=== PATIENT | female | born 1975 | race Caucasian/White ===

== ENCOUNTER 2018-12-09 10:50 | Outpatient (REF) | payer BC, SELFPAY ==
--- NOTE | 2018-12-09 10:30 | PAPFT_PTH ---
PATIENT: Inga Hylton LOC: [facility] U#:[id number] AGE/SX: 43/F ROOM: RE12/09/[address]: HYACINTH Cornell : 1975 BED: DIS: 12/09/2018 SPEC #: [id number] RECD: 12/09/18 13:19 STATUS: MERCEDES REQ #: [id number] JUN: 12/09/18 10:[address]: Luba Sharma DEPT: [facility] Cytology RECD BY: Darlyn Nicole ENTERED: 12/09/18 13:19 SP TYPE: PAPFT OTHR DR: Loni Briones Tissues: 1 - CX/ENDOCX FOR PAP SMEARS Procedures: PAP THIN PREP/UVM Screening HPV DNA PROBE Comments: [id number]
== END 2018-12-09 11:10 ==
LOC: LBN 10:50
PROVIDERS: PCP Nurse Practitioner Family; Visit Provider Nurse Practitioner Family
DX: Z12.4 Encounter for screening for malignant neoplasm of cervix (principal); Z11.51 Encounter for screening for human papillomavirus (HPV)
CPT/HCPCS: 88142; 87624

== ENCOUNTER 2018-12-16 00:26 | Outpatient (CLI) | payer BC, SELFPAY ==
--- NOTE | 2018-12-16 11:00 | DI.MAMMO_ITS ---
SYMPTOMS/DIAGNOSIS: SCREENING, Z12.31, FAMILY HISTORY OF BREAST CA IN GRANDMOTHER AND 2 AUNTS UNDER 50 MAMMOGRAM: Mammograms were interpreted according to the usual protocol including computer analysis with CAD system, tomosynthesis and C view imaging. The breasts are heterogeneously dense. No dominant mass or clumped microcalcification is identified in either breast. Current examination is compared with previous examinations including April 2017 and there has been no gross interval change in appearance in comparison with the previous studies. CONCLUSION: No specific evidence of malignancy at this time. Routine screening examinations are suggested at yearly intervals due to the family history of breast carcinoma. Category 1, breast density category C. MQSA ASSESSMENT OF FINDINGS: Negative. Category 1. Patient will receive a letter notifying them of these results. Bi-RADS category C. The breasts are heterogeneously dense, which may obscure small masses.
== END 2018-12-16 00:46 ==
PROVIDERS: PCP Nurse Practitioner Family; Visit Provider Nurse Practitioner Family
DX: Z12.31 Encounter for screening mammogram for malignant neoplasm of breast (principal); Z80.3 Family history of malignant neoplasm of breast
CPT/HCPCS: 77063; 77067

== ENCOUNTER → 2023-10-31 01:49 | Outpatient (CLI) | payer OTHER, SELFPAY ==
--- OUTSIDE RECORDS SUMMARY | 2023-09-27 00:48 | XMS_ITS | CCD ---
Author Name Unknown Address [address] [place] [address] [id number] Organization Unknown Address [address] [place], [place] [id number] Care Team Providers Care Circulating Process Inspector Name Role Phone LOUIS REICH MD Attending Physician [phone] Vital Signs Unknown or Not Available. Allergies Unknown or Not Available. Procedures Unknown or Not Available. History of Immunizations Unknown or Not Available. Problems Unknown or Not Available. Results CRISTIAN VALDEZID ANIKAX - Colle ct Date/Time: 06/20/2021 11:00 Test Name Code Test Result Test Units Test Ref Rang e SOURCE= Anterior nasal N/A Tier- TRAVEL N/A SARS COV2 RNA: 81062-5 NEGATIVE N/A REFERENCE RANGE: NEGAT Active Medications Unknown or Not Available. Medications Administered During Visit Unknown or Not Available. Encounters Encounter Diagnosis Diagnosis Code Start Date CONTACT WITH AND SUSPECTED EXPOSURE TO COVID-19 [id number] 06/20/2021 Social History Unknown or Not Available. Patient Decision Aids Unknown or Not Available. Discharge Instructions You were admitted to [facility] on 06/20/2021 13:03 with a principal diagnosis of Contact with and (suspected) exposure to COVID-19 You had the following tests done:CRISTIAN DU You were discharged from [facility] on 06/20/2021 13:04 Should you have any questions prior to discharge, please contact a member of your healthcare team. If you have left the hospital and have any questions, please contact your primary care physician. Chief Complaint and Reason For Visit Unknown or Not Available. Function Status Unknown or Not Available. Plan of Care Unknown or Not Available. Referral/Transition of Care Unknown or Not Available.
--- OUTSIDE RECORDS SUMMARY | 2023-09-27 00:48 | XMS_ITS | CCD ---
Author Name Unknown Address [address] [place] [address] [phone] Organization Unknown Address [address] [place], [place] [id number] Care Team Providers Care Psychiatric Aide Name Role Phone YASMEEN GONZALEZ Attending Physician [phone] YASMEEN GONZALEZ Er Physician 3 [phone] JAMAR Lockhart Registered Nurse [phone] TADEO Lockhart Registered Nurse [phone] Vital Signs Vital Sign Value Unit Date/Time Recent/Initial ? BMI (Body Mass Index) 29.53 kg/m^2 02/20/2023 23: 11 Initial VS Weight Measured 200 lbs 02/20/2023 23:11 Ini tial VS Height 69 in 02/20/2023 23:11 Initial VS BSA (Body Surface Area) 2.1 m^2 02/20/2023 2 3:11 Initial VS BP Systolic 145 mmHg 02/20/2023 23:11 Initial VS BP Diastolic 81 mmHg 02/20/2023 23:11 Initia l VS Respiratory Rate 12 bpm 02/20/2023 23:11 In itial VS Heart Rate 97 bpm 02/20/2023 23:11 Initial VS O2 % BldC Oximetry 98 % 02/20/2023 23:11 Initial VS Body Temperature 37.2 degrees 02/20/2023 23:11 In itial VS BP Systolic 104 mmHg 02/21/2023 01:37 Most Re cent VS BP Diastolic 60 mmHg 02/21/2023 01:37 Most R ecent VS Respiratory Rate 13 bpm 02/21/2023 01:[address] Recent VS Heart Rate 78 bpm 02/21/2023 01:37 Most Rec ent VS O2 % BldC Oximetry 97 % 02/21/2023 01:37 Most Recent VS Allergies Allergy Code Allergy Type Reaction Status No Known Drug Allergies 0 No known drug allergies Active Procedures Unknown or Not Available. History of Immunizations Unknown or Not Available. Problems Problem Code Start Date Resolved Date Status Hypothyroidism [id number] 02/20/2023 Resolved Results BASIC METABOLIC PANEL (BMP) - Collect Date/Time: 02/20/2023 23:05 Test Name Code Test Result Test Units Test Ref Rang e GLUCOSE 2345-7 105 mg/dL L=70 H=116 BUN 3094-0 19 mg/dL L=6 H=25 CREATININE 2160-0 0.94 mg/dL L=0.51 H=0.95 SODIUM SERUM 2951-2 142 mmol/L L=136 H=145 POTASSIUM SERUM 2823-3 3.4 mmol/L L=3.4 H=5 .2 CHLORIDE SERUM 2075-0 103 mmol/L L=96 H=110 CARBON DIOXIDE (CO2) 2028-9 31 mmol/L L=22 H=34 ANION GAP 80364-9 8.0 mmol/L CALCIUM SERUM 02874-0 9.0 mg/dL L=8.2 H=10. 2 AGE 47 years eGFR (non-Afr.Amer.) 32191-7 64 mL/min eGFR (Afr-Bermudian) 02131-1 78 mL/min TROPONIN HIGH SENSITIVITY* - Collect Date/Time: 02/21/2023 00:35 Test Name Code Test Result Test Units Test Ref Rang e TROPONIN HS 5.9 pg/mL L=0.0 H=60.4 Specimen seq. 3 HOUR N/A TROPONIN HIGH SENSITIVITY* - Collect Date/Time: 02/20/2023 23:05 Test Name Code Test Result Test Units Test Ref Rang e TROPONIN HS 7.2 pg/mL L=0.0 H=60.4 Specimen seq. RANDOM N/A CBC W/ DIFFERENTIAL* - Colle ct Date/Time: 02/20/2023 23:05 Test Name Code Test Result Test Units Test Ref Rang e WBC 6690-2 12.21 th/cmm L=5.00 H=10.00 NEUT % 63.3 % L=40.0 H=80.0 LYMPH % 28.4 % L=10.0 H=50.0 MONO % 83624-9 6.5 % L=2.0 H=12.0 EOS % 1.0 % L=0.0 H=8.0 BASO % 0.5 % L=0.0 H=3.0 IG % 2514-8 0.3 % L=0.0 H=1.1 NRBC % 06718-6 0.0 % L=0.0 H=0.0 NEUT abs count 751-8 7.7 th/cmm L=1.6 H=8. 4 LYMPH abs count 731-0 3.5 th/cmm L=1.5 H=4 .0 MONO abs count 742-7 0.8 th/cmm L=0.2 H=1. 0 EOS abs count 711-2 0.1 th/cmm L=0.0 H=0.5 BASO abs count 704-7 0.1 th/cmm L=0.0 H=0. 2 IG abs count 92371-3 0.0 th/cmm L=0.0 H=0.1 NRBC abs count 05553-3 0.0 mil/cmm L=0.0 H=0. 0 RBC 789-8 4.36 mil/cmm L=3.90 H=5.40 HEMOGLOBIN 718-7 13.5 gm/dL L=12.0 H=16.0 HEMATOCRIT 4544-3 41 % L=37 H=47 MCV 787-2 94 fL L=82 H=92 MCH 785-6 31.0 pg L=27.0 H=31.0 MCHC 786-4 33.0 % L=32.0 H=36.0 RDW-SD 788-0 45.1 fL L=39.0 H=49.0 PLATELET COUNT 777-3 306 th/cmm L=150 H=45 0 Active Medications Medications Administered During Visit Medication Dose Units Frequency Route Date/Time of Last Dose ASPIRIN TABLET CHEWABLE: 81MG 324 MG X1 CHEW 02/20/2023 23:48 ER-ONDANSETRON ODT 4 PACK: 4MG 4 MG PRN Q8H PO 02/21/2023 01:50 Encounters Encounter Diagnosis Diagnosis Code Start Date Chest pain [id number] 02/20/2023 Social History Unknown or Not Available. Patient Decision Aids Unknown or Not Available. Discharge Instructions You were admitted to [facility] on 02/20/2023 23:00 with a principal diagnosis of Other chest pain You had the following tests done:TROPONIN HIGH SENSITIVITY*BASIC METABOLIC PANEL (BMP)CBC W/ DIFFERENTIAL*TROPONIN HIGH SENSITIVITY* You were discharged from [facility] on 02/21/2023 01:52 Should you have any questions prior to discharge, please contact a member of your healthcare team. If you have left the hospital and have any questions, please contact your primary care physician. Chief Complaint and Reason For Visit Chief Complaint Date of Onset CHEST PAIN Function Status Unknown or Not Available. Plan of Care Unknown or Not Available. Referral/Transition of Care Unknown or Not Available.
--- OUTSIDE RECORDS SUMMARY | 2023-09-27 00:48 | XMS_ITS | CCD ---
Author Name Unknown Address [address] [place] [address] [phone] Organization Unknown Address [address] [place], [place] [phone] Care Team Providers Care Head Of Sales And Marketing Name Role Phone FABRICIO WONG Attending Physician [phone] Vital Signs Unknown or Not Available. Allergies Allergy Code Allergy Type Reaction Status No Known Drug Allergies 0 No known drug allergies Active Procedures Unknown or Not Available. History of Immunizations Unknown or Not Available. Problems Unknown or Not Available. Results FREE THYROXINE FOR THYROID C ASCADE* - Collect Date/Time: 09/11/2023 16:47 Test Name Code Test Result Test Units Test Ref Rang e FREE THYROXINE. 1.6 ng/dL L=0.7 H=1 .4 GLUCOSE BLOOD QUANT* - Colle ct Date/Time: 09/11/2023 16:47 Test Name Code Test Result Test Units Test Ref Rang e GLUCOSE 2345-7 81 mg/dL L=70 H=116 LIPID PANEL* - Collect Date/ Time: 09/11/2023 16:47 Test Name Code Test Result Test Units Test Ref Rang e CHOLESTEROL 2093-3 207 mg/dL L=0 H=200 TRIGLYCERIDES 2571-8 143 mg/dL L=45 H=191 HDL 2085-9 60 mg/dL L=34 H=88 non-HDL-C 47231-7 147 mg/dL L=0 H=160 LDL (CALC) 49261-0 118 mg/dL L=0 H=130 % HDL 29.0 % Chol/HDL Ratio 9830-1 3.5 L=0.0 H=4. 4 CHD Relative Risk 0.8 x Avg L=0.0 H =1.0 LDL/HDL Ratio 52651-0 2.0 L=0.0 H=3.2 CHD Relative Risk. 0.6 x Avg L=0.0 H=1.0 FASTING STATUS: NON FASTING N/A THYROID TESTING CASCADE* - C ollect Date/Time: 09/11/2023 16:47 Test Name Code Test Result Test Units Test Ref Rang e TSH. 3014-8 <0.007 uIU/mL L=0.360 H=3.74 0 Active Medications Unknown or Not Available. Medications Administered During Visit Unknown or Not Available. Encounters Unknown or Not Available. Social History Unknown or Not Available. Patient Decision Aids Unknown or Not Available. Discharge Instructions You were admitted to [facility] on 09/11/2023 12:27 You had the following tests done:FREE THYROXINE FOR THYROID CASCADE*GLUCOSE BLOOD QUANT*LIPID PANEL*THYROID TESTING CASCADE* You were discharged from [facility] on 09/11/2023 12:27 Should you have any questions prior to [...]
--- OUTSIDE RECORDS SUMMARY | 2023-09-27 00:48 | XMS_ITS | CCD ---
Author Name Unknown Address [address] [place] [address] [id number] Organization Unknown Address [address] [place] [address] [phone] Care Team Providers Care Production Tool Engineer Name Role Phone KARELY QUINN Chanda Attending Physician [phone] Vital Signs Unknown or Not Available. Allergies Unknown or Not Available. Procedures Unknown or Not Available. History of Immunizations Unknown or Not Available. Problems Unknown or Not Available. Results HEP B SURF ANTIBODY* - Colle ct Date/Time: 05/16/2022 10:07 Test Name Code Test Result Test Units Test Ref Rang e HBs Antibody, Quant >1000.0 mIU/mL See N ote Hep B Surface Ab Positive N/A See Note MUMPS IGG ANTIBODY SCREEN* - Collect Date/Time: 05/16/2022 10:07 Test Name Code Test Result Test Units Test Ref Rang e Mumps Antibody IgG Positive N/A See No te RUBELLA IGG ANTIBODY - Colle ct Date/Time: 05/16/2022 10:07 Test Name Code Test Result Test Units Test Ref Rang e Rubella IgG Ab Positive N/A See Note RUBEOLA IGG ANTIBODY* - Debra ect Date/Time: 05/16/2022 10:07 Test Name Code Test Result Test Units Test Ref Rang e Measles IgG Antibody Positive N/A See Note VARICELLA IGG ANTIBODY* - Co llect Date/Time: 05/16/2022 10:07 Test Name Code Test Result Test Units Test Ref Rang e Varicella IgG Antibody Positive N/A Se e Note Active Medications Unknown or Not Available. Medications Administered During Visit Unknown or Not Available. Encounters Encounter Diagnosis Diagnosis Code Start Date History and physical examination, pre-employment [id number] 05/16/2022 Social History Smoking Status Code Start Date End Date Unknown if ever smoked [id number] Patient Decision Aids Unknown or Not Available. Discharge Instructions You were admitted to [facility] on 05/16/2022 16:44 with a principal diagnosis of Encounter for pre-employment examination You had the following tests done:HEP B SURF ANTIBODY*MUMPS IGG ANTIBODY SCREEN*RUBELLA IGG ANTIBODYRUBEOLA IGG ANTIBODY*VARICELLA IGG ANTIBODY* You were discharged from [facility] on 05/16/2022 16:44 Should you have any questions prior to [...]
--- OUTSIDE RECORDS SUMMARY | 2023-09-27 00:49 | XMS_ITS | CCD ---
Author Name Unknown Address [address] [place] [address] [phone] Organization Unknown Address [address] [place] [address] [phone] Care Team Providers Care Special Procedures Nurse Name Role Phone LOUIS REICH Attending Physician [phone] Vital Signs Unknown or Not Available. Allergies Unknown or Not Available. Procedures Unknown or Not Available. History of Immunizations Unknown or Not Available. Problems Unknown or Not Available. Results CRISTIAN COVID RHEONIX* - Debra ect Date/Time: 07/29/2021 11:41 Test Name Code Test Result Test Units Test Ref Rang e SOURCE= Anterior nasal N/A Tier- SYMPTOMS N/A SARS COV2 RNA: 50399-7 NEGATIVE N/A REFERENCE RANGE: NEGAT Active Medications Unknown or Not Available. Medications Administered During Visit Unknown or Not Available. Encounters Encounter Diagnosis Diagnosis Code Start Date Exposure to SARS-CoV-2 [id number] Social History Smoking Status Code Start Date End Date Unknown if ever smoked [id number] Patient Decision Aids Unknown or Not Available. Discharge Instructions You were admitted to [facility] on 07/29/2021 22:26 with a principal diagnosis of Contact with and (suspected) exposure to COVID-19 You had the following tests done:CRISTIAN COVID RHEONIX* You were discharged from [facility] on 07/29/2021 22:26 Should you have any questions prior to [...]
--- OUTSIDE RECORDS SUMMARY | 2023-10-31 01:52 | XMS_ITS | CCD ---
Author Name Unknown Address [address] [place] [address] [phone] Organization Unknown Address [address] [place], [place] [id number] Care Team Providers Care Door Liner Helper Name Role Phone YASMEEN GNOZALEZ Attending Physician [phone] YASMEEN GONZALEZ Er Physician 1 [phone] JAMAR Lockhart Registered Nurse [phone] TADEO Lockhart Registered Nurse [phone] Vital Signs Vital Sign Value Unit Date/Time [...] Code Start Date Resolved Date Status Hypothyroidism [id number] 02/20/2023 Resolved Results BASIC METABOLIC PANEL (BMP) [...] 2028-9 31 mmol/L L=22 H=34 ANION GAP 54447-3 8.0 mmol/L CALCIUM SERUM 34766-5 9.0 mg/dL L=8.2 H=10. 2 AGE 47 years eGFR (non-Afr.Amer.) 35728-9 64 mL/min eGFR (Afr-Moldovan) 19488-7 78 mL/min TROPONIN HIGH SENSITIVITY* - Collect [...] % 28.4 % L=10.0 H=50.0 MONO % 89830-1 6.5 % L=2.0 H=12.0 EOS % 1.0 % L=0.0 H=8.0 BASO % 0.5 % L=0.0 H=3.0 IG % 2514-8 0.3 % L=0.0 H=1.1 NRBC % 90150-2 0.0 % L=0.0 H=0.0 NEUT abs count 751-8 7.7 th/cmm L=1.6 H=8. 4 LYMPH abs count 731-0 3.5 th/cmm L=1.5 H=4 .0 MONO abs count 742-7 0.8 th/cmm L=0.2 H=1. 0 EOS abs count 711-2 0.1 th/cmm L=0.0 H=0.5 BASO abs count 704-7 0.1 th/cmm L=0.0 H=0. 2 IG abs count 47376-1 0.0 th/cmm L=0.0 H=0.1 NRBC abs count 77290-7 0.0 mil/cmm L=0.0 H=0. 0 RBC 789-8 [...] Diagnosis Diagnosis Code Start Date Chest pain 79238910 02/20/2023 Social History Unknown or Not Available. Patient Decision Aids Unknown or Not Available. Discharge Instructions You were admitted to [facility] on 02/20/2023 23:00 with a principal diagnosis of Other chest pain You had the following tests done:TROPONIN HIGH SENSITIVITY*BASIC METABOLIC PANEL (BMP)CBC W/ DIFFERENTIAL*TROPONIN HIGH SENSITIVITY* You were discharged from [facility] on 02/21/2023 01:52 Should you have [...]
--- OUTSIDE RECORDS SUMMARY | 2023-10-31 01:52 | XMS_ITS | CCD ---
Author Name Unknown Address [address] [place] [address] [phone] Organization Unknown Address [address] [place] [address] [phone] Care Team Providers Care Floor Layer Helper Name Role Phone LOUIS REICH Attending Physician [phone] Vital Signs Unknown or Not Available. Allergies Unknown or Not Available. Procedures Unknown or Not Available. History of Immunizations Unknown or Not Available. Problems Unknown or Not Available. Results CRISTIAN COVID RHEONIX* - Debra ect Date/Time: 07/29/2021 11:41 Test Name Code Test Result Test Units Test Ref Rang e SOURCE= Anterior nasal N/A Tier- SYMPTOMS N/A SARS COV2 RNA: 98334-5 NEGATIVE N/A REFERENCE RANGE: NEGAT Active Medications Unknown or Not Available. Medications Administered During Visit Unknown or Not Available. Encounters Encounter Diagnosis Diagnosis Code Start Date Exposure to SARS-CoV-2 [id number] Social History Smoking Status Code Start Date End Date Unknown if ever smoked [id number] Patient Decision Aids Unknown or Not Available. Discharge Instructions You were admitted to [facility] on 07/29/2021 22:26 with a principal diagnosis of Contact with and (suspected) exposure to COVID-19 You had the following tests done:CRISTIAN COVID RHEONIX* You were discharged from [facility] on 07/29/2021 22:26 Should you have [...]
--- OUTSIDE RECORDS SUMMARY | 2023-10-31 01:52 | XMS_ITS | CCD ---
Author Name Unknown Address [address] [place] [address] [id number] Organization Unknown Address [address] [place] [address] [phone] Care Team Providers Care Surveying Crew Rodman Name Role Phone KARELY QUINN Chanda Attending Physician [phone] Vital Signs Unknown or Not Available. Allergies [...] Start Date History and physical examination, pre-employment [id number] 05/16/2022 Social History Smoking Status Code Start Date End Date Unknown if ever smoked [id number] Patient Decision Aids Unknown or Not Available. Discharge Instructions You were admitted to [facility] on 05/16/2022 16:44 with a principal diagnosis of Encounter for pre-employment examination You had the following tests done:HEP B SURF ANTIBODY*MUMPS IGG ANTIBODY SCREEN*RUBELLA IGG ANTIBODYRUBEOLA IGG ANTIBODY*VARICELLA IGG ANTIBODY* You were discharged from [facility] on 05/16/2022 16:44 Should you have any [...]
--- OUTSIDE RECORDS SUMMARY | 2023-10-31 01:52 | XMS_ITS | CCD ---
Author Name Unknown Address [address] [place] [address] [phone] Organization Unknown Address [address] [place], [place] [phone] Care Team Providers Care Cyber Defense Incident Responder Name Role Phone FABRICIO WONG Attending Physician [phone] Vital Signs Unknown or Not Available. Allergies [...] HDL 2085-9 60 mg/dL L=34 H=88 non-HDL-C 09775-7 147 mg/dL L=0 H=160 LDL (CALC) 95721-7 118 mg/dL L=0 H=130 % HDL 29.0 % Chol/HDL Ratio 9830-1 3.5 L=0.0 H=4. 4 CHD Relative Risk 0.8 x Avg L=0.0 H =1.0 LDL/HDL Ratio 43584-5 2.0 L=0.0 H=3.2 CHD Relative Risk. 0.6 [...] Encounters Encounter Diagnosis Diagnosis Code Start Date Screening for cardiovascular system disease 3000 11821 09/11/2023 Social History Unknown or Not Available. Patient Decision Aids Unknown or Not Available. Discharge Instructions You were admitted to [facility] on 09/11/2023 12:27 with a principal diagnosis of Encounter for screening for cardiovascular disorders You had the following tests done:FREE THYROXINE FOR THYROID CASCADE*GLUCOSE BLOOD QUANT*LIPID PANEL*THYROID TESTING CASCADE* You were discharged from [facility] on 09/11/2023 12:27 Should you have [...]
--- NOTE | 2023-10-31 15:42 | DI.MAMMO_ITS ---
Exam(s) MAMMO SCREENING EXAM: MAMMO SCREENING CLINICAL HISTORY: SCREENING,Z12.31 TECHNIQUE: Mammograms were interpreted according to the usual protocol including computer analysis w [employer] CAD system, tomosynthesis and C-view imaging. COMPARISON: 2013 through 2018 FINDINGS: The breasts are composed of scattered fibroglandular densities, Breast Density category B. No suspicious masses or suspicious microcalcifications are seen. No skin thickening or abnormal axillary lymph nodes are seen. There has been no significant change from prior exams. IMPRESSION: BI-RADS Category 1, Negative mammogram Yearly screening mammography is recommended. Breast Density - Category B, scattered fibroglandular densities. A negative radiographic report should not delay biopsy if a dominant or clinically suspicious mass is present. Up to ten percent of cancers are not identified on mammography. A negative report may reinforce clinical impression. Adenosis and dense breasts may obscure an underlying neoplasm. False positive reports average 6 to 10%. Patient will receive a letter notifying them of these results.
== END ==
PROVIDERS: PCP Nurse Practitioner Family; Visit Provider Nurse Practitioner Family
DX: Z12.31 Encounter for screening mammogram for malignant neoplasm of breast (principal); R92.323 Mammographic fibroglandular density, bilateral breasts
CPT/HCPCS: 77063; 77067